=== PATIENT | female | born 1990 | race Caucasian/White ===

== ENCOUNTER 2017-09-21 15:31 | Emergency (ER) | END 2017-09-21 17:55 | disposition home or self-care (01) ==

== ENCOUNTER 2018-09-21 10:30 | Emergency (ER) | payer MEDICAID ==
[~2018-09-21] VITALS: Ht 162.6 cm; Wt 86.0 kg
[~2018-09-21 10:30] MED LIST: D-ME473S2 PO
[2018-09-21 10:43] VITALS: Ht 162.6 cm; Wt 86.0 kg
--- NOTE | 2018-09-21 10:51 | ERD ---
ER Documentation Chief Complaint Chief Complaint C/O COUGH, SORE THROAT, DIFFICULTY TO SWALLOW FOR 3 DAYS HPI 28-year-old female, presents to the emergency department, complaining of 3days with sore throat, associated with difficulty to swallow solids, subjective fever and general malaise. The patient also noticed a tender lump under the neck. ROS All systems reviewed and are negative except as per history of present illness. Medications Home Meds Active Scripts Hydrocodone/Acetaminophen (Diagonal 5-325 Tablet) 1 Each Tablet, 1 TAB PO Q6H PRN for PAIN, #7 TAB Prov:CHAO HARRISON PA-C 09/23/18 Ibuprofen* (Motrin*) 400 Mg Tab, 400 MG PO Q6H PRN for PAIN AND OR ELEVATED TEMP, #30 TAB Prov:EDWARDO CAMPBELL MD 09/21/18 Amoxicillin/Potassium Clav (Amox-Clav 875-125 mg Tablet) 875-125 mg Tab, 1 TAB PO BID, #20 TAB Prov:EDWARDO CAMPBELL MD 09/21/18 Dextromethorphan Hb-Promethazine Hcl* (Promethazine DM* Syrup) 473 Ml Syrup, 5 ML PO Q6 PRN for COUGH, #120 ML Prov:CHERI SANFORD PA-C 09/21/17 Allergies Allergies: Coded Allergies: No Known Allergy (Unverified , 09/23/18) PMhx/Soc Medical and Surgical Hx: pt denies Medical Hx, pt denies Surgical Hx Hx Substance Use: No Hx Tobacco Use: No Smoking Status: Never smoker FmHx Family History: No diabetes, No coronary disease Physical Exam Vitals Vital Signs Date Temp Pulse Resp B/P (MAP) Pulse Ox O2 O2 Flow FiO2 Time Delivery Rate 09/21/18 99.2 90 18 117/69 97 Room Air 14:16 (85) 09/21/18 98.5 90 18 134/79 99 10:43 (97) Physical Exam Patient is in moderate distress due to pain. Vital signs stable. EYES: PERRLA, EOMI, injected sclerae EARS: Canals clear, erythematous tympanic membranes THROAT: Erythematous oropharynx with significant tenderness and edema of the s ubmandibular salivary glands NECK: Supple, + tender cervical lymphadenopathy. Full ROM without pain or tenderness. HEART: RRR, no rubs, murmurs, clicks or gallops. LUNGS: Bilateral rhonchi to auscultation. ABDOMEN: Soft, non-tender without masses or hepatosplenomegaly. EXTREMITIES: No edema bilaterally. BACK: Full ROM, no deformity, normal back exam NEURO: Cranial nerves grossly intact, no motor or sensory deficit Results 24 hrs Laboratory Tests Test 09/21/18 11:23 POC Beta HCG, Qualitative NEGATIVE Current Medications Medications Dose Sig/Myron Start Time Status Last (Trade) Ordered Route PRN Stop Time Admin Dose Reason Admin Sodium 1,000 ml @ Q1H STAT 09/21/18 DC 09/21/18 Chloride 1,000 mls/hr IV 11:17 11:52 09/21/18 12:16 125 mg ONCE ONCE 09/21/18 DC 09/21/18 Methylprednis IV 11:30 11:52 olone Sodium 09/21/18 11:31 Succinate (Solu-Medrol) Ceftriaxone 50 ml @ ONCE ONCE 09/21/18 DC 09/21/18 Sodium 100 mls/hr IVPB 11:30 12:16 09/21/18 11:59 Ketorolac 15 mg ONCE STAT 09/21/18 DC 09/21/18 Tromethamine IV 11:17 11:52 (Toradol) 09/21/18 11:29 320 mg ONCE ONCE 09/21/18 DC 09/21/18 Acetaminophen PO 11:30 11:53 (Tylenol 09/21/18 11:31 Liquid (Ped)) Morphine 1 mg ONCE STAT 09/21/18 DC 09/21/18 Sulfate IV 12:20 13:08 (morphine) 09/21/18 12:21 Procedures/MDM Differential diagnosis include but not limited to: Tonsillar/pharyngeal infection bacterial/viral/fungal, parotitis, allergies, GERD. Less likely peritonsillar abscess, retropharyngeal abscess. No signs of upper respiratory obstruction Physical examination and clinical presentation consistent most likely with infectious parotitis. During the ED course the patient remained stable. Clinical impression discussed with the patient who agrees with management. The patient is stable to be treated outpatient and will be discharged home with a Rx for antibiotic and ibuprofen. Some side effects of prescribed medications (headache, rash, nausea, vomiting, diarrhea, drowsiness, habituation, bleeding, hypertension, interactions with ot her medications) were reviewed. The patient was instructed to follow up with the primary care provider in the next 48h. If symptoms persist, worsen or new symptoms develop, then patient should return to the ED immediately. Disclaimer: Inadvertent spelling and grammatical errors are likely due to EHR/dictation software use and do not reflect on the overall quality of patient care. Also, please note that the electronic time recorded on this note does not necessarily reflect the actual time of the patient encounter. Departure Diagnosis: Primary Impression: Salivary gland infection Condition: Stable Additional Instructions: Muchas benji por [facility] para cho servicio. Esperamos que en cho visita a la wilner de emergencia cho problema medico haya sido solucionado y que se sienta mucho mejor. Para estar seguros que cho mejoria sigue en proceso, le pedimos el favor de hacer abad sagar de seguimiento medico con cho doctor primario en los proximos 2-4 lazo. Lleve con usted estos documentos y las medicinas recetadas. Si ky sintomas empeoran, NO SE ESPERE, por favor regrese a wilner de emergencia INMEDIATAMENTE. En gage que usted no tenga un mdico de atencin primaria: Llame al mdico o clnica comunitaria de referencia que aparece abajo brittany las horas de consultorio para hacer abad sagar para que le vean. CLINICAS: [facility] [phone] [facility] [phone] [facility] [phone] [facility] [phone] [facility] [phone] [address] [facility]. [phone] EDWARDO SEPULVEDA MD Sep 21, 2018 10:51
[2018-09-21] MEDS ORDERED: KETOROLAC 15 MG INJ IV STA (11:17)
[2018-09-21] MEDS ORDERED: SOD CHLORIDE 0.9% 1,000 ML IV STA (11:17)
[2018-09-21] MEDS ORDERED: CEFTRIAXONE 2 GM/50 ML (PMX) 50 ML IVPB ONE (11:30)
[2018-09-21] MEDS ORDERED: METHYLPREDNISOLONE 125 MG INJ IV ONE (11:30)
[2018-09-21] MEDS ORDERED: ACETAMINOPHEN 160 MG/5ML CUP PO ONE (11:30)
[2018-09-21] MEDS ORDERED: morphine 2 MG INJ IV STA (12:20)
[2018-09-21] MEDS ORDERED: AMOX1TAB10 PO (12:22)
[2018-09-21] MEDS ORDERED: IBUP-1561 PO (12:22)
[2018-09-21 14:16] VITALS: BP 117/69; PULSE 90; RESP 18
== END 2018-09-21 14:18 | disposition home or self-care (01) ==
LOC: FTE 10:30
DX: K11.20 Sialoadenitis, unspecified (principal)
CPT/HCPCS: 81025; 96374; 96375; J0696; J1885; J2270; J2930; J7030; Z7502; Z7610

== ENCOUNTER 2018-09-23 12:39 | Emergency (ER) | payer MEDICAID ==
[~2018-09-23] VITALS: Ht 160 cm; Wt 86.4 kg
[~2018-09-23 12:39] MED LIST changes: +AMOX1TAB10 PO; +IBUP-1561 PO
[2018-09-23 12:47] VITALS: BP 143/76; PULSE 72; RESP 18; Ht 160 cm; Wt 86.4 kg
--- NOTE | 2018-09-23 15:39 | ERD ---
ER Documentation Chief Complaint Chief Complaint PT HAS ST X 4 DAYS 11/13 HPI Patient is a 28-year-old female presents the ER for concerns of throat pain times 5 days. Patient was seen here 2 days ago and diagnosed as tolerated and infection. Patient states his been taking Augmentin and ibuprofen with minimal alleviation of symptoms. Patient states she continues to have more swelling below her tongue and pain. Patient states it hurts to swallow. Patient reports tactile fevers. Patient denies any drooling, trismus or hyperextension of her neck. Patient denies any cough. Patient denies any chest pain or shortness of breath. ROS All systems reviewed and are negative except as per history of present illness. Medications Home Meds Active Scripts Hydrocodone/Acetaminophen ([place] 5-325 Tablet) 1 Each Tablet, 1 TAB PO Q6H PRN for PAIN, #7 TAB Prov:CHAO HARRISON PA-C 09/23/18 Ibuprofen* (Motrin*) 400 Mg Tab, 400 MG PO Q6H PRN for PAIN AND OR ELEVATED TEMP, #30 TAB Prov:EDWARDO CAMPBELL MD 09/21/18 Amoxicillin/Potassium Clav (Amox-Clav 875-125 mg Tablet) 875-125 mg Tab, 1 TAB PO BID, #20 TAB Prov:EDWARDO CAMPBELL MD 09/21/18 Dextromethorphan Hb-Promethazine Hcl* (Promethazine DM* Syrup) 473 Ml Syrup, 5 ML PO Q6 PRN for COUGH, #120 ML Prov:CHERI SANFORD PA-C 09/21/17 Allergies Allergies: Coded Allergies: No Known Allergy (Unverified , 09/23/18) PMhx/Soc Medical and Surgical Hx: pt denies Medical Hx, pt denies Surgical Hx Hx Alcohol Use: No Hx Substance Use: No Hx Tobacco Use: No Smoking Status: Never smoker FmHx Family History: No diabetes Physical Exam Vitals Vital Signs Date Temp Pulse Resp B/P (MAP) Pulse Ox O2 O2 Flow FiO2 Time Delivery Rate 09/23/18 98.4 72 18 143/76 100 12:47 (98) Physical Exam GENERAL: Well-developed, well-nourished female. Appears in no acute distress. Speaking in full sentences. HEAD: Normocephalic, atraumatic. EYES: Pupils are equally reactive bilaterally. EOMs grossly intact. No conjunctival erythema. ENT: Moist mucous membranes. No uvula deviation. No kissing tonsils. Oropharynx is erythematous, no exudates noted. No tonsillar swelling noted. Swelling noted in this sub-mandibular region. Area is tender to touch however no erythema or warmth noted. NECK: Supple. No meningismus. Normal range of motion of the neck. LUNG: Clear to auscultation bilaterally. No rhonchi, wheezing, rales or coarse breath sounds. HEART: Regular rate and rhythm. No murmurs, rubs or gallops. EXTREMITIES: Equal pulses bilaterally. No peripheral clubbing, cyanosis or edema. No unilateral leg swelling. NEUROLOGIC: Alert and oriented. Moving all four extremities without any difficu lty. Normal speech. Steady gait. SKIN: Normal color. Warm and dry. No rashes or lesions. Result Diagram: 09/23/18 1418 09/23/18 1418 Results 24 hrs Laboratory Tests Test 09/23/18 14:18 09/23/18 14:20 White Blood Count 8.5 10^3/ul Red Blood Count 4.81 10^6/ul Hemoglobin 13.6 g/dl Hematocrit 40.6 % Mean Corpuscular Volume 84.4 fl Mean Corpuscular Hemoglobin 28.3 pg Mean Corpuscular Hemoglobin Concent 33.5 g/dl Red Cell Distribution Width 12.0 % Platelet Count 322 10^3/UL Mean Platelet Volume 9.9 fl Immature Granulocytes % 1.500 % Neutrophils % 62.7 % Lymphocytes % 28.1 % Monocytes % 5.0 % Eosinophils % 2.3 % Basophils % 0.4 % Nucleated Red Blood Cells % 0.0 /100WBC Immature Granulocytes # 0.130 10^3/ul Neutrophils # 5.3 10^3/ul Lymphocytes # 2.4 10^3/ul Monocytes # 0.4 10^3/ul Eosinophils # 0.2 10^3/ul Basophils # 0.0 10^3/ul Nucleated Red Blood Cells # 0.0 10^3/ul Sodium Level 139 mmol/L Potassium Level 4.3 mmol/L Chloride Level 99 mmol/L Carbon Dioxide Level 33 mmol/L Anion Gap 7 Blood Urea Nitrogen 8 mg/dl Creatinine 0.62 mg/dl Est Glomerular Filtrat Rate mL/min > 60 mL/min Glucose Level 97 mg/dl Calcium Level 10.1 mg/dl Beta HCG, Quantitative < 2.4 mIU/ml POC Beta HCG, Qualitative BORDERLINE Current Medications Medications Dose Sig/Myron Start Time Status Last (Trade) Ordered Route PRN Stop Time Admin Dose Reason Admin 1 tab ONCE ONCE 09/23/18 DC Acetaminophen PO 16:00 / 09/23/18 16:00 Hydrocodone Bitart ([place] (5/325)) Ketorolac 30 mg ONCE STAT 09/23/18 DC 09/23/18 Tromethamine IV 15:42 16:28 (Toradol) 09/23/18 15:43 IV Flush 10 ml STK-MED 09/23/18 DC 09/23/18 (NS 10 ml) ONCE .ROUTE 15:50 16:09 09/23/18 15:51 Sodium 100 ml @ ud STK-MED 09/23/18 DC 09/23/18 Chloride ONCE .ROUTE 15:50 16:09 09/23/18 15:51 Iohexol 150 ml STK-MED 09/23/18 DC 09/23/18 (Omnipaque ONCE .ROUTE 15:50 16:09 300mg/ ml) 09/23/18 15:51 Procedures/MDM ED COURSE: The patient was stable throughout ED course. I kept the patient and/or family informed of laboratory and diagnostic imaging results throughout the ED course. DIAGNOSTIC IMAGING: Read by radiologist. Patient: ASHWINI MENDEZ : 1990 Age: 28 Sex: F MR #: [id number] DOS: 09/23/18 1410 Ordering MD: CHAO HARRISON PA-C Location: [facility] Room/Bed: PROCEDURE: CT NECK WITH CONTRAST CLINICAL INDICATION: Floor of the mouth lesion. TECHNIQUE: Utilizing a Alter-GpeSnapt helical CT scanner, multiple contiguous transaxial images were obtained from the base of skull to mid thyroid gland during intravenous administration of 80 cc of Omnipaque 300. In addition to soft tissue and bone windows of transaxial images, multiple sagittal and coronal reformatted images were generated for the interpretation. DIACOM images are available. Radiation dose: CTDIvol = 54 mGy; total DLP = 1168 mGy-cm. One or more of the following dose reduction techniques were used: - Automated exposure control. - Adjustment of the mA and/or kV according to patient size. - Use of iterative reconstruction technique. COMPARISON: None. FINDINGS: There is a bilobed lesion with a central hypoattenuation density and with mildly thick peripheral soft tissue with mild contrast enhancement along the midline anteriorly and left paramedian posteriorly of floor of the mouth measuring approximately 37 mm AP x 18 mm TR x 20 mm CC and along the midline of infrahyoid strap muscles measuring approximately 9 mm x 13 mm TR x 20 mm CC, which could represent a previously infected thyroglossal duct cyst or dermoid cyst. MRI examination of the neck with and without contrast is recommended for further tissue characterization. The nasopharynx, oropharynx, hypopharynx, bilateral parotid glands, bilateral submandibular glands, and visualized thyroid gland are normal. There is no malignant-appearing cervical lymphadenopathy per the size criteria. There is no destructive bone lesion. Bilateral mastoid air cells and visualized paranasal sinuses are normally aerated. IMPRESSION: 1. Bilobed lesion with a central hypoattenuation density and with mildly thick peripheral soft tissue with mild contrast enhancement along the midline anteriorly and left paramedian posteriorly of floor of the mouth measuring approximately 37 mm AP x 18 mm TR x 20 mm CC and along the midline of infrahyoid strap muscles measuring approximately 9 mm x 13 mm TR x 20 mm CC could represent a previously infected thyroglossal duct cyst or dermoid cyst. MRI examination of the neck with and without contrast is recommended for further tissue characterization. 2, No malignant appearing cervical lymphadenopathy per the size criteria. RPTAT: EE Physician Sadiq Date Time Electronically viewed and signed by Physician Sadiq on 09/23/2018 17:13 PH/ CC: CHAO HARRISON PA-C [phone] MEDICAL DECISION MAKING: Patient is a 28-year-old female presents ER for concerns of throat pain for the last 5 days. Patient was seen here 2 days ago and given Augmentin for concerns of a salivary gland infection. Patient states her swelling and pain has worsened. Vital signs were reviewed. Patient is afebrile. Patient was not hypoxic. Patient was hemodynamically stable. Patient was tolerating secretions well with no evidence of airway compromise. IV line was established. Blood work was obtained. Initial urine beta-hCG was noted to be borderline thus quantitative beta-hCG through blood was obtained and was less than 2.4. CBC showed no evidence of systemic infection or severe anemia. BMP showed no evidence of electrolyte abnormalities, severe acidosis, alkalosis, renal failure. CT imaging with IV contrast of mandible obtained and showed: 1. Bilobed lesion with a central hypoattenuation density and with mildly thick peripheral soft tissue with mild contrast enhancement along the midline anteriorly and left paramedian posteriorly of floor of the mouth measuring approximately 37 mm AP x 18 mm TR x 20 mm CC and along the midline of infrahyoid strap muscles measuring approximately 9 mm x 13 mm TR x 20 mm CC could represent a previously infected thyroglossal duct cyst or dermoid cyst. MRI examination of the neck with and without contrast is recommended for further tissue characterization. 2, No malignant appearing cervical lymphadenopathy per the size criteria. Findings were discussed with supervising physician Dr. Davis, who agreed that the patient was stable for outpatient management. Patient was given ENT referral for patient advised to follow-up with an ENT specialist. Patient will likely need further work-up and/or biopsy of the affected mass. At this time the patient presentation is most consistent with a submandibular mass. Low suspicion for airway compromise, airway obstruction, deep space infection, sepsis. Patient was nontoxic, non ill appearing prior to discharge. Patient advised to continue antibiotics as prescribed. Disclaimer: Inadvertent spelling and grammatical errors are likely due to EHR/dictation software use and do not reflect on the overall quality of patient care. Also, please note that the electronic time recorded on this note does not necessarily reflect the actual time of the patient encounter. Departure Diagnosis: Primary Impression: Submandibular gland mass Condition: Fair Patient Instructions: Salivary Gland Infection Referrals: KEHINDE BONILLA MD,DANN GUILLEN,JERZY PIERRE MD, MD [facility] YOU HAVE RECEIVED A MEDICAL SCREENING EXAM AND THE RESULTS INDICATE THAT YOU DO NOT HAVE A CONDITION THAT REQUIRES URGENT TREATMENT IN THE EMERGENCY DEPARTMENT. FURTHER EVALUATION AND TREATMENT OF YOUR CONDITION CAN WAIT UNTIL YOU ARE SEEN IN YOUR DOCTORS OFFICE WITHIN THE NEXT 1-2 DAYS. IT IS YOUR RESPONSIBILITY TO MAKE AN APPOINTMENT FOR FOLOW-UP CARE. IF YOU HAVE A PRIMARY DOCTOR --you should call your primary doctor and schedule an appointment IF YOU DO NOT HAVE A PRIMARY DOCTOR YOU CAN CALL OUR PHYSICIAN REFERRAL HOTLINE AT IF YOU CAN NOT AFFORD TO SEE A PHYSICIAN YOU CAN CHOSE FROM THE FOLLOWING [facility] [address] [facility] [address] [facility] [address] [facility] [address] [facility] [address] [facility]. [facility] [address] [facility]. [facility] YOU HAVE RECEIVED A MEDICAL SCREENING EXAM AND THE RESULTS INDICATE THAT YOU DO NOT HAVE A CONDITION THAT REQUIRES URGENT TREATMENT IN THE EMERGENCY DEPARTMENT. FURTHER EVALUATION AND TREATMENT OF YOUR CONDITION CAN WAIT UNTIL YOU ARE SEEN IN YOUR DOCTORS OFFICE WITHIN THE NEXT 1-2 DAYS. IT IS YOUR RESPONSIBILITY TO MAKE AN APPOINTMENT FOR FOLOW-UP CARE. IF YOU HAVE A PRIMARY DOCTOR --you should call your primary doctor and schedule and appointment IF YOU DO NOT HAVE A PRIMARY DOCTOR YOU CAN CALL OUR PHYSICIAN REFERRAL HOTLINE AT . IF YOU CAN NOT AFFORD TO SEE A PHYSICIAN YOU CAN CHOSE FROM THE FOLLOWING [facility]: [facility] [address] [place] [address] [facility] [address] [place] [address] [facility] [address] [place] [address] Additional Instructions: Continuar los antibiticos segn lo prescrito. No tome [place] cuando conduzca o maneje maquinaria. Zeke un seguimiento con el mdico ENT para un tratamiento adicional de los sntomas. Llame al doctor MAANA y zeke abad MELQUIADES PARA DENTRO DE 1-2 BOWERS.Dgale a la secretaria que nosotros le instruimos hacer esta melquiades.Avise o llame si cho condicin se empeora antes de la melquiades. Regresa aqui si peor o no mejor. CHAO HARRISON PA-C Sep 23, 2018 15:39
[2018-09-23] MEDS ORDERED: KETOROLAC 30 MG INJ IV STA (15:42)
[2018-09-23] MEDS ORDERED: SOD CHLORIDE 0.9% 100 ML ONE (15:50)
[2018-09-23] MEDS ORDERED: IOHEXOL 300MG/ML 150 ML BTL ONE (15:50)
[2018-09-23] MEDS ORDERED: HYDROCODONE/APAP (5/325) TAB PO ONE (16:00)
[2018-09-23] MEDS ORDERED: HYDR-4011 PO (17:11)
== END 2018-09-23 17:27 | disposition home or self-care (01) ==
LOC: FTE 12:39
DX: K11.8 Other diseases of salivary glands (principal)
CPT/HCPCS: 70486; 80048; 81025; 84702; 85025; 96374; J1885; Q9967; Z7502; Z7610

== ENCOUNTER 2018-11-21 14:42 | Emergency (ER) | payer MEDICAID ==
[~2018-11-21] VITALS: Ht 167.6 cm; Wt 84.8 kg
[~2018-11-21 14:42] MED LIST changes: +HYDR-4011 PO
[2018-11-21 14:46] VITALS: BP 150/87; PULSE 75; RESP 18; Ht 167.6 cm; Wt 84.8 kg
--- NOTE | 2018-11-21 15:50 | ERD ---
ER Documentation Chief Complaint Chief Complaint shortness of breath and sorethroat since yesterday HPI 28-year-old female, previously healthy, presents to the emergency department, complaining of cough and sore throat that started yesterday. The patient reports today mild shortness of breath and chest pain and she is concerned about her heart and lungs. No history of previous similar episodes, no history of asthma or pulmonary disease, no history of coronary events. The patient denies fever or chills, no abdominal pain, no rashes. ROS All systems reviewed and are negative except as per history of present illness. Medications Home Meds Active Scripts Ibuprofen* (Motrin*) 400 Mg Tab, 400 MG PO Q6H PRN for PAIN AND OR ELEVATED TEMP, #20 TAB Prov:EDWARDO CAMPBELL MD 11/21/18 Lorazepam* (Ativan*) 0.5 Mg Tablet, 0.5 MG PO DAILY PRN for ANXIETY, #5 TAB Prov:EDWARDO CAMPBELL MD 11/21/18 Hydrocodone/Acetaminophen ([place] 5-325 Tablet) 1 Each Tablet, 1 TAB PO Q6H PRN for PAIN, #7 TAB Prov:CHAO HARRISON PA-C 09/23/18 Ibuprofen* (Motrin*) 400 Mg Tab, 400 MG PO Q6H PRN for PAIN AND OR ELEVATED TEMP, #30 TAB Prov:EDWARDO CAMPBELL MD 09/21/18 Amoxicillin/Potassium Clav (Amox-Clav 875-125 mg Tablet) 875-125 mg Tab, 1 TAB PO BID, #20 TAB Prov:EDWARDO CAMPBELL MD 09/21/18 Dextromethorphan Hb-Promethazine Hcl* (Promethazine DM* Syrup) 473 Ml Syrup, 5 ML PO Q6 PRN for COUGH, #120 ML Prov:CHERI SANFORD PA-C 09/21/17 Allergies Allergies: Coded Allergies: No Known Allergy (Unverified , 09/23/18) PMhx/Soc Medical and Surgical Hx: pt denies Medical Hx Hx Alcohol Use: No Hx Substance Use: No Hx Tobacco Use: No FmHx Family History: diabetes, coronary disease Physical Exam Vitals Vital Signs Date Temp Pulse Resp B/P (MAP) Pulse Ox O2 O2 Flow FiO2 Time Delivery Rate 11/21/18 99.0 75 18 150/87 98 14:46 (108) Physical Exam Const: No acute distress Head: Atraumatic Eyes: Normal Conjunctiva ENT: Normal External Ears, Nose and Mouth. Neck: Full range of motion. No meningismus. Resp: Clear to auscultation bilaterally Cardio: Regular rate and rhythm, no murmurs Abd: Soft, non tender, non distended. Normal bowel sounds Skin: No petechiae or rashes Back: No midline or flank tenderness Ext: No cyanosis, or edema Neur: Awake and alert Psych: Normal Mood and Affect Results 24 hrs Laboratory Tests Test 11/21/18 16:19 POC Beta HCG, Qualitative NEGATIVE Patient: ASHWINI MENDEZ : 1990 Age: 28 Sex: F MR #: [id number] DOS: 11/21/18 1559 Ordering MD: EDWARDO CAMPBELL MD Location: [facility] Room/Bed: PROCEDURE: XR Chest. CLINICAL INDICATION: Shortness of breath TECHNIQUE: PA and lateral views of the chest were obtained COMPARISON: 09/21/2017 FINDINGS: Heart is normal in size. Mediastinum is unremarkable. The lungs are clear. There is no pleural effusion or pneumothorax. No acute osseous abnormality. IMPRESSION: No acute pulmonary disease. RPTAT: PP Physician Manjula Date Time Electronically viewed and signed by Adelfo Narayan Physician on 11/21/2018 17:02 ME/ CC: EDWARDO CAMPBELL MD [phone] EKG read by me: Rate/Rhythm: Regular rate and rhythm at a rate of 61 Intervals: Normal No acute ST changes. No T wave inversion Impression: No evidence of acute ischemia or arrhythmia Procedures/MDM Vital signs stable. Differential diagnosis include but not limited to: URI, PNA, chostochondritis, GERD, musculoskeletal injury, less likely PE, pericarditis, endocarditis. Pertinent Data: 12 Lead ECG: Sinus rhythm, no ST changes, normal T wave, normal intervals Radiology: Chest x-rays: Normal Physical examination and clinical presentation consistent most likely with atypical chest pain most likely secondary to anxiety/viral syndrome due to sore throat. During the ED course the patient remained stable, no new complaints. Results and clinical impression discussed with patient who agrees with management. The patient is stable to be treated outpatient and will be discharged home. some side effects of prescribed medications (headache, rash, nausea, vomiting, diarrhea, drowsiness, habituation, bleeding, hypertension, interactions with other medications) were reviewed. The patient was informed that the evaluation in the emergency department has been done to rule out an acute emergency, therefore, chronic conditions like malignancy or autoimmune diseases have not been evaluated; therefore, the patient was instructed to follow up with the primary care provider in the next 48h. If symptoms persist, worsen or new symptoms develop, then patient should return to the ED immediately. Instructions explained and given directly by me to the patient with acknowledgment and demonstrated understanding. Disclaimer: Inadvertent spelling and grammatical errors are likely due to EHR/dictation software use and do not reflect on the overall quality of patient care. Also, please note that the electronic time recorded on this note does not necessarily reflect the actual time of the patient encounter. Departure Diagnosis: Primary Impression: Viral syndrome Additional Impression: Anxiety Condition: Stable Patient Instructions: Your Body's Response to Anxiety Additional Instructions: Muchas benji por [facility] para cho servicio. Esperamos que en cho visita a la wilner de emergencia cho problema medico haya sido solucionado y que se sienta mucho mejor. Para estar seguros que cho mejoria sigue en proceso, le pedimos el favor de hacer abad sagar de seguimiento medico con cho doctor primario en los proximos 2-4 lazo. Lleve con usted estos documentos y las medicinas recetadas. Si ky sintomas empeoran, NO SE ESPERE, por favor regrese a wilner de emergencia INMEDIATAMENTE. En gage que usted no tenga un mdico de atencin primaria: Llame al mdico o clnica comunitaria de referencia que aparece abajo brittany las horas de consultorio para hacer abad sagar para que le vean. CLINICAS: [facility] [phone] [facility] [phone] [facility] [phone] [address] [facility] [phone] [place] [phone] [facility]. [phone] EDWARDO SEPULVEDA MD Nov 21, 2018 15:50
[2018-11-21] MEDS ORDERED: IBUP-1561 PO (17:21)
[2018-11-21] MEDS ORDERED: LORA-441 PO (17:21)
== END 2018-11-21 17:36 | disposition home or self-care (01) ==
LOC: FTE 14:42
DX: B34.9 Viral infection, unspecified (principal); F41.9 Anxiety disorder, unspecified
CPT/HCPCS: 71046; 81025; 93005; Z7502

== ENCOUNTER 2019-04-10 11:50 | Emergency (ER) | payer MEDICAID ==
[~2019-04-10] VITALS: Ht 162.6 cm; Wt 90.0 kg
[~2019-04-10 11:50] MED LIST changes: +LORA-441 PO
[2019-04-10 11:51] VITALS: BP 126/58; PULSE 67; RESP 18; Ht 162.6 cm; Wt 90.0 kg
== END 2019-04-10 14:52 | disposition home or self-care (01) ==
LOC: FTE 11:50
DX: O20.9 Hemorrhage in early pregnancy, unspecified (principal); R10.2 Pelvic and perineal pain; Z3A.08 8 weeks gestation of pregnancy
CPT/HCPCS: 76801; 76817; 81001; 84702; 85025; 86900; 86901; Z7502